=== PATIENT | female | born 1975 | race Hispanic/Latino ===

== ENCOUNTER → 2017-09-19 | Outpatient (CLI) | payer OTHER ==
--- NOTE | 2017-09-19 16:44 | MRI ---
EXAM DESCRIPTION: Knee,Right CLINICAL HISTORY: PAIN COMPARISON: None Available. TECHNIQUE: MRI of the right knee is performed according to our usual protocol with multiplanar multi sequence imaging. FINDINGS: Small right knee joint effusion. Evaluation of articular surfaces shows significant medial compartment chondrosis with fairly extensive mixed grade 2/3 chondrosis. Cruciate and collateral ligaments intact. Free edge and undersurface tear of the posterior horn of the medial meniscus near the posterior central attachment site. No displaced fragment. Lateral meniscus intact. IMPRESSION: 1. Medial meniscus tear 2. Significant medial compartment chondrosis Electronically signed by: Ricci Navarro MD 09/19/2017 4:43 PM CDT
== END | disposition home or self-care (01) ==
LOC: MRI 15:00
PROVIDERS: ATTEND Family Medicine
DX: X58.XXXA Exposure to other specified factors, initial encounter (principal)